=== PATIENT | male | born 1950 | race Caucasian/White ===

== ENCOUNTER → 2022-05-24 13:15 | Outpatient (CLI) | payer MEDICARE, SELFPAY | PROVIDERS: PCP Physician Assistant; Referring Provider Family Medicine; Visit Provider Surgery | DX: I89.0 Lymphedema, not elsewhere classified (principal); L89.313 Pressure ulcer of right buttock, stage 3; L97.522 Non-pressure chronic ulcer of other part of left foot with fat layer exposed; L97.822 Non-pressure chronic ulcer of other part of left lower leg with fat layer exposed; L97.512 Non-pressure chronic ulcer of other part of right foot with fat layer exposed; L97.811 Non-pressure chronic ulcer of other part of right lower leg limited to breakdown of skin; L03.115 Cellulitis of right lower limb; L03.116 Cellulitis of left lower limb; G82.21 Paraplegia, complete | CPT/HCPCS: 11042; 11045; 87070; 87075; 87077; 87147; 87186; 87205; 99204; 99215 ==

== ENCOUNTER → 2022-05-24 13:24 | Outpatient (CLI) | payer MEDICARE, SELFPAY ==
[2022-05-24 15:03] LABS: Add Manual Diff / Slide Review NO; Basophils Absolute Auto 100 /uL (0-100); Basophils Percent Auto 0.8 % (0-2); Eosinophils Absolute Auto 200 /uL (0-450); Eosinophils Percent Auto 2.3 % (2-4); Hematocrit 37.5 % (41-53); Hemoglobin 12.6 g/dL (13.5-17.5); Lymphocytes Absolute Auto 1900 /uL (1100-4500); Lymphocytes Percent Auto 20.7 % (25-40); Mean Corpuscular HGB Conc 33.5 % (30-36); Mean Corpuscular Hemoglobin 29.8 PG (26-34); Mean Corpuscular Volume 88.9 fL (80-100); Monocytes Absolute Auto 700 /uL (0-900); Monocytes Percent Auto 7.5 % (3-14); Neutrophils Absolute Auto 6300 /uL (1500-7000); Neutrophils Percent Auto 68.7 % (50-75); Platelet Count 384 X10^3/uL (150-400); Red Blood Cell Count 4.21 X10^6/uL (4.5-5.9); Red Cell Distribution Width 14.2 % (11.6-14.8); White Blood Cell Count 9.2 X10^3/uL (4.5-11.0)
[2022-05-24 15:18] LABS: Alanine Aminotransferase 47 IU/L (<50); Albumin 4.2 g/dL (3.5-5.0); Albumin Globulin Ratio 1.3 (1.0-2.8); Alkaline Phosphatase 70 U/L (38-126); Aspartate Aminotransferase 33 IU/L (17-59); BUN Creatinine Ratio 24.5 (6-22); Bilirubin Total 0.5 mg/dL (0.2-1.3); Blood Urea Nitrogen 13 mg/dL (9-20); Calcium 9.2 mg/dL (8.4-10.2); Carbon Dioxide 28 mmol/L (22-32); Chloride 100 mmol/L (98-107); Estimated Glomerular Filt Rate > 60 mL/min (>60); Globulin 3.3 g/dL (1.7-4.1); Glucose 100 mg/dL (80-110); HEMOLYSIS < 15 (0-50); Potassium 4.1 mmol/L (3.4-5.1); Sodium 138 mmol/L (137-145); Total Protein 7.5 g/dL (6.3-8.2)
== END ==
PROVIDERS: PCP Family Medicine; Referring Provider Surgery; Visit Provider Surgery
DX: L08.9 Local infection of the skin and subcutaneous tissue, unspecified (principal)
CPT/HCPCS: 36415; 80053; 85025

== ENCOUNTER → 2022-06-01 11:04 | Outpatient (CLI) | payer MEDICARE, SELFPAY | PROVIDERS: PCP Family Medicine; Referring Provider Family Medicine; Visit Provider Surgery | DX: I89.0 Lymphedema, not elsewhere classified (principal); L89.313 Pressure ulcer of right buttock, stage 3; L97.522 Non-pressure chronic ulcer of other part of left foot with fat layer exposed; L97.512 Non-pressure chronic ulcer of other part of right foot with fat layer exposed; L03.115 Cellulitis of right lower limb; L03.116 Cellulitis of left lower limb; G82.21 Paraplegia, complete | CPT/HCPCS: 11042; 11045; 99213 ==

== ENCOUNTER → 2022-06-15 11:00 | Outpatient (CLI) | payer MEDICARE, SELFPAY | PROVIDERS: PCP Physician Assistant; Referring Provider Physician Assistant; Visit Provider Surgery | DX: I89.0 Lymphedema, not elsewhere classified (principal); L03.119 Cellulitis of unspecified part of limb; L97.521 Non-pressure chronic ulcer of other part of left foot limited to breakdown of skin; L89.313 Pressure ulcer of right buttock, stage 3; R60.0 Localized edema; G82.21 Paraplegia, complete; Z99.3 Dependence on wheelchair | CPT/HCPCS: 11042; 11045; 97597; 97598 ==

== ENCOUNTER → 2022-06-22 10:42 | Outpatient (CLI) | payer MEDICARE, SELFPAY ==
--- NOTE | 2022-06-22 10:43 | DI.US.S_ITS ---
PROCEDURE: US ARTERIAL DUPLEX LE BI INDICATIONS: NONHEALING ULCERS BILATERAL TECHNIQUE: Color and pulse Doppler interrogation was performed of both lower extremity arterial systems, with image documentation. COMPARISON: None. FINDINGS: Right lower extremity: Common femoral artery: 117 cm/sec, with triphasic flow. Deep femoral artery: 49 cm/sec, with triphasic flow. Proximal superficial femoral artery: 112 cm/sec, with biphasic flow. Mid superficial femoral artery: 96 cm/sec, with triphasic flow. Distal superficial femoral artery: 124 cm/sec, with triphasic flow. Popliteal artery: 119 cm/sec, with triphasic flow. Posterior tibial artery: 109 cm/sec, with monophasic flow. Anterior tibial artery/dorsalis pedis: 78 cm/sec, with monophasic flow. Serrano-scale imaging description: Severe edema Left lower extremity: Common femoral artery: 116 cm/sec, with triphasic flow. Deep femoral artery: 77 cm/sec, with triphasic flow. Proximal superficial femoral artery: 96 cm/sec, with triphasic flow. Mid superficial femoral artery: 89 cm/sec, with triphasic flow. Distal superficial femoral artery: 131 cm/sec, with triphasic flow. Popliteal artery: 101 cm/sec, with triphasic flow. Posterior tibial artery: 125 cm/sec, with monophasic flow. Anterior tibial artery/dorsalis pedis: 24 cm/sec, with monophasic flow. Serrano-scale imaging description: Severe edema IMPRESSION: 1. No significant outflow stenosis bilaterally. 2. Severe bilateral lower extremity edema associated with monophasic waveforms in the tibial vasculature. Initial further assessment with MR angiography runoff evaluation is recommended. Dictated by: Augustus Anglin M.D. on 06/23/2022 at 16:32 Approved by: Augustus Anglin M.D. on 06/23/2022 at 16:36
== END ==
PROVIDERS: PCP Physician Assistant; Referring Provider Surgery; Visit Provider Surgery
DX: L97.519 Non-pressure chronic ulcer of other part of right foot with unspecified severity (principal); L97.529 Non-pressure chronic ulcer of other part of left foot with unspecified severity; R60.0 Localized edema
CPT/HCPCS: 93925

== ENCOUNTER → 2022-06-22 13:57 | Outpatient (CLI) | payer MEDICARE, SELFPAY | PROVIDERS: PCP Physician Assistant; Referring Provider Physician Assistant; Visit Provider Surgery | DX: L89.313 Pressure ulcer of right buttock, stage 3 (principal); L97.522 Non-pressure chronic ulcer of other part of left foot with fat layer exposed; L97.512 Non-pressure chronic ulcer of other part of right foot with fat layer exposed; I89.0 Lymphedema, not elsewhere classified; G82.21 Paraplegia, complete; R60.0 Localized edema | CPT/HCPCS: 11042; 11045; 93925; 97597; 97598; 99213 ==

== ENCOUNTER → 2022-07-12 10:49 | Outpatient (CLI) | payer MEDICARE, SELFPAY | PROVIDERS: PCP Physician Assistant; Referring Provider Family Medicine; Visit Provider Surgery | DX: I89.0 Lymphedema, not elsewhere classified (principal); L89.313 Pressure ulcer of right buttock, stage 3; L97.522 Non-pressure chronic ulcer of other part of left foot with fat layer exposed; L97.512 Non-pressure chronic ulcer of other part of right foot with fat layer exposed; L03.119 Cellulitis of unspecified part of limb; G82.21 Paraplegia, complete | CPT/HCPCS: 11042; 11045; 99213 ==

== ENCOUNTER → 2022-08-02 10:36 | Outpatient (CLI) | payer MEDICARE, SELFPAY | PROVIDERS: PCP Physician Assistant; Referring Provider Family Medicine; Visit Provider Surgery | DX: I89.0 Lymphedema, not elsewhere classified (principal); L97.522 Non-pressure chronic ulcer of other part of left foot with fat layer exposed; L97.512 Non-pressure chronic ulcer of other part of right foot with fat layer exposed; L89.313 Pressure ulcer of right buttock, stage 3; L03.119 Cellulitis of unspecified part of limb; G82.21 Paraplegia, complete | CPT/HCPCS: 11042; 11045; 87070; 87186; 87205; 99214 ==

== ENCOUNTER 2022-08-02 11:54 | Inpatient (IN) | payer MEDICARE, SELFPAY ==
[2022-08-02] VITALS (14 sets, daily range): BP systolic 136–191; BP diastolic 63–96; PULSE 82–105; RESP 12–21; TEMP 36.9–38.1; O2SAT 96–99; BMI 28.8; BMI 28.5
--- NOTE | 2022-08-02 12:17 | ED.WOUNDLAC ---
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 as follows: Interpretation: Sinus rhythm heart rate 93, occasional unifocal PVCs no other ectopy or ST changes noted. 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 With concern for possible need for admission. Patient is a generally well-appearing nontoxic in no distress he is mildly tachycardic on presentation however his overall presentation is not suggestive of sepsis. He does endorse some chills recently and some fatigue compared to baseline. Some difficulty in obtaining labs as patient is a difficult IV start. Evaluation of the decubitus ulcer does show a stage 3 ulcer with some erythema slight heat and induration without fluctuance open area about 3cm in diameter with associated erythema and 5x3cm area of erythema and induration. Does not appear to involve the rectum however further evaluation is pursued with CT scan to evaluate extent. Social work is consulted for this patient given previous note that patient would never accept being put in a facility and the fact that if the patient is to be sent home today after evaluation he may need additional resources to manage his care. On chart review patient's ulcer is reportedly worsening in part due to delay in getting a special pillow for his wheelchair that will allow variable inflation so that he is not constantly putting pressure on this area. Also per patient and his informal caregiver (present today) wounds on his lower extremities are generally improving and Wound Care is happy with the progress--this is consistent with notes from the patient's PCP which I reviewed. Patient's CT Pelvis scan returns showing evidence of a phlegmon without fluid collection, possible small gas focus and this was reviewed with attending physician, as well as the patient's labs. Patient does have a leukocytosis to 15,000. After consultation with hospitalist, given this patient's situation, paraplegia, limited access to wound care and persistently worsening decubitus ulcer now with leukocytosis hospitalist is agreeable to admitting him for further care and evaluation and anticipate transition to half-way facility for further care. <Claude Willson DO - Last Filed: 08/06/22 19:39> Lab Data Labs: Lab Results 08/02/22 08/02/22 08/02/22 Range/Units 13:21 13:50 13:50 WBC 15.9 H (4.5-11.0) X10^3/uL RBC 4.01 L (4.5-5.9) X10^6/uL Hgb 11.5 L (13.5-17.5) g/dL Hct 35.2 L (41-53) % MCV 87.6 (80-100) fL MCH 28.7 (26-34) PG MCHC 32.8 (30-36) % RDW 13.9 (11.6-14.8) % Plt Count 426 H (150-400) X10^3/uL Neut % (Auto) 78.1 H (50-75) % Lymph % (Auto) 11.6 L (25-40) % [place] % (Auto) 8.0 (3-14) % Eos % (Auto) 1.6 L (2-4) % Baso % (Auto) 0.7 (0-2) % Neut # (Auto) 44578 H (1830-7308) /uL Lymph # (Auto) 1800 (0896-8988) /uL [place] # (Auto) 1300 H (0-900) /uL Eos # (Auto) 300 (0-450) /uL Baso # (Auto) 100 (0-100) /uL Sodium 134 L (137-145) mmol/L Potassium 4.0 (3.4-5.1) mmol/L Chloride 96 L (98-107) mmol/L Carbon Dioxide 32 (22-32) mmol/L BUN 11 (9-20) mg/dL Creatinine 0.55 L (0.66-1.25) mg/dL Estimated GFR > 60 (>60) mL/min BUN/Creatinine Ratio 20.0 (6-22) Glucose 105 (80-110) mg/dL Lactate (0.7-2.1) mmol/L Calcium 8.9 (8.4-10.2) mg/dL Magnesium (1.6-2.3) mg/dL Total Bilirubin 0.7 (0.2-1.3) mg/dL AST 28 (17-59) IU/L ALT 45 (<50) IU/L Alkaline Phosphatase 74 (38-126) U/L Total Protein 7.6 (6.3-8.2) g/dL Albumin 3.7 (3.5-5.0) g/dL Globulin 3.9 (1.7-4.1) g/dL Albumin/Globulin Ratio 0.9 L (1.0-2.8) Procalcitonin 0.11 (<0.5) ng/mL Urine Color Urine Appearance Urine pH (4.5-8.0) Ur Specific [place] (1.000-1.035) Urine Protein (Negative) Urine Glucose (UA) (Negative) g/dL Urine Ketones (NEGATIVE) Urine Occult Blood (Negative) Urine Nitrate (Negative) Urine Bilirubin (NEGATIVE) Urine Urobilinogen (0.2) E.U./dL Ur Leukocyte Esterase (NEGATIVE) Urine RBC (0-5/HPF) Urine WBC (0-5/HPF) Ur Squamous Epith Cells (0-5/HPF) Urine Bacteria (None) Ur Culture Indicated? SARS-CoV-2 (PCR) Negative (Negative) Influenza A (RT-PCR) Flu a negative (NEGATIVE) Influenza B (RT-PCR) Flu b negative (NEGATIVE) RSV (PCR) Negative (Negative) 08/02/22 08/02/22 08/02/22 Range/Units 13:50 13:50 14:02 WBC (4.5-11.0) X10^3/uL RBC (4.5-5.9) X10^6/uL Hgb (13.5-17.5) g/dL Hct (41-53) % MCV (80-100) fL MCH (26-34) PG MCHC (30-36) % RDW (11.6-14.8) % Plt Count (150-400) X10^3/uL Neut % (Auto) (50-75) % Lymph % (Auto) (25-40) % [place] % (Auto) (3-14) % Eos % (Auto) (2-4) % Baso % (Auto) (0-2) % Neut # (Auto) (3157-0373) /uL Lymph # (Auto) (7788-8527) /uL [place] # (Auto) (0-900) /uL Eos # (Auto) (0-450) /uL Baso # (Auto) (0-100) /uL Sodium (137-145) mmol/L Potassium (3.4-5.1) mmol/L Chloride (98-107) mmol/L Carbon Dioxide (22-32) mmol/L BUN (9-20) mg/dL Creatinine (0.66-1.25) mg/dL Estimated GFR (>60) mL/min BUN/Creatinine Ratio (6-22) Glucose (80-110) mg/dL Lactate 1.1 (0.7-2.1) mmol/L Calcium (8.4-10.2) mg/dL Magnesium 2.1 (1.6-2.3) mg/dL Total Bilirubin (0.2-1.3) mg/dL AST (17-59) IU/L ALT (<50) IU/L Alkaline Phosphatase (38-126) U/L Total Protein (6.3-8.2) g/dL Albumin (3.5-5.0) g/dL Globulin (1.7-4.1) g/dL Albumin/Globulin Ratio (1.0-2.8) Procalcitonin (<0.5) ng/mL Urine Color Yellow Urine Appearance Clear Urine pH 6.5 (4.5-8.0) Ur Specific [place] 1.015 (1.000-1.035) Urine Protein Negative (Negative) Urine Glucose (UA) Negative (Negative) g/dL Urine Ketones Trace H (NEGATIVE) Urine Occult Blood Negative (Negative) Urine Nitrate Negative (Negative) Urine Bilirubin Negative (NEGATIVE) Urine Urobilinogen 1.0 (0.2) E.U./dL Ur Leukocyte Esterase Negative (NEGATIVE) Urine RBC 0-1/hpf (0-5/HPF) Urine WBC 0-1/hpf (0-5/HPF) Ur Squamous Epith Cells 1-5 /hpf (0-5/HPF) Urine Bacteria Few (2-10) H (None) Ur Culture Indicated? Cult not indicated SARS-CoV-2 (PCR) (Negative) Influenza A (RT-PCR) (NEGATIVE) Influenza B (RT-PCR) (NEGATIVE) RSV (PCR) (Negative) Discharge Plan Departure Patient Disposition: Admitted As Inpatient Clinical Impression: Decubitus skin ulcer, UTI (urinary tract infection), Chronic paraplegia, Leukocytosis Admit Date/Time: 08/02/22 17:12 Admit Provider: Bulmaro Prince <Claude Willson, DO - Last Filed: 08/06/22 19:39> Cosign ED Attending Cosignature Attestation: Dr Willson Co-Sign Statement: I was available for consultation during this patient's emergency department visit. This chart is signed by myself for administrative purposes only. I did not have direct contact with this patient during this visit. They were seen independently by the APC.
--- NOTE | 2022-08-02 12:31 | DI.CT.S_ITS ---
PROCEDURE: CT PELVIS W CON INDICATIONS: Right buttock abscess/decubitus TECHNIQUE: After the administration of intravenous contrast, 5 mm thick sections acquired from the iliac crests to the symphysis. 5 mm coronal and sagittal reformats were acquired. For radiation dose reduction, the following was used: automated exposure control, adjustment of mA and/or kV according to patient size. COMPARISON: None. FINDINGS: Image quality: Excellent. Peritoneum and bowel: Bowel loops demonstrate normal wall thickness and caliber. No free fluid or air. Diverticulosis of the sigmoid colon. No findings to suggest acute diverticulitis. Genitourinary: Bladder wall thickness is normal. Nodes and vessels: No iliac, pelvic, or inguinal adenopathy by size criteria. Iliac vessels demonstrate normal size and enhancement. Bones: No suspicious bony lesions. There is right hip arthroplasty. Moderate left hip joint degeneration. Miscellaneous: No inguinal hernias. There is a skin defect in the right posterior thigh. A soft tissue density is noted in the posterior thigh surrounding a subcutaneous gas, compatible with phlegmon. No organized, drainable fluid collections. A linear hyperdensity in the vicinity of the skin defect is probably a surgical suture. There is soft tissue stranding in the right pleural thigh consistent with cellulitis. Less severe stranding is noted in the left thigh. IMPRESSION: 1. There is a skin defect and a tiny focus of subcutaneous gas with surrounding soft tissue stranding and edema consistent with cellulitis and phlegmon. No organized, drainable fluid collections to suggest abscess at this time. 2. Diverticulosis without diverticulitis. Dictated by: Rajiv Paul M.D. on 08/02/2022 at 15:19 Approved by: Rajiv Paul M.D. on 08/02/2022 at 15:23
--- NOTE | 2022-08-02 13:15 | PC.NURSE ---
Pt sees wound care physician at [facility] on a semi regular basis per pt. Pt was recently at wound care visit and was referred to ED for infection assessment. Provider at the bedside for wound assessment.
[2022-08-02 14:11] LABS: Influenza A - CEPHEID Flu A NEGATIVE (NEGATIVE); Influenza B - CEPHEID Flu B NEGATIVE (NEGATIVE); Respiratory Syncytial Virus Negative (Negative)
[2022-08-02 14:12] LABS: COVID-19 CEPHEID 4-PLEX PCR Negative (Negative)
[2022-08-02 14:12] LABS: Add Manual Diff / Slide Review NO; Basophils Absolute Auto 100 /uL (0-100); Basophils Percent Auto 0.7 % (0-2); Eosinophils Absolute Auto 300 /uL (0-450); Eosinophils Percent Auto 1.6 % (2-4); Hematocrit 35.2 % (41-53); Hemoglobin 11.5 g/dL (13.5-17.5); Lymphocytes Absolute Auto 1800 /uL (1100-4500); Lymphocytes Percent Auto 11.6 % (25-40); Mean Corpuscular HGB Conc 32.8 % (30-36); Mean Corpuscular Hemoglobin 28.7 PG (26-34); Mean Corpuscular Volume 87.6 fL (80-100); Monocytes Absolute Auto 1300 /uL (0-900); Neutrophils Absolute Auto 12400 /uL (1500-7000); Neutrophils Percent Auto 78.1 % (50-75); Platelet Count 426 X10^3/uL (150-400); Red Blood Cell Count 4.01 X10^6/uL (4.5-5.9); Red Cell Distribution Width 13.9 % (11.6-14.8); White Blood Cell Count 15.9 X10^3/uL (4.5-11.0)
[2022-08-02 14:13] LABS: Appearance Urine UA CLEAR; Bilirubin Urine UA NEGATIVE (NEGATIVE); Color Urine UA YELLOW; Glucose Urine UA NEGATIVE (Negative); Ketones Urine UA TRACE (NEGATIVE); Leukocyte Esterase Urine UA NEGATIVE (NEGATIVE); Nitrite Urine UA NEGATIVE (Negative); Occult Blood Urine UA NEGATIVE (Negative); Protein Urine UA NEGATIVE (Negative); Specific Gravity Urine UA 1.015 (1.000-1.035); pH Urine UA 6.5 (4.5-8.0)
[2022-08-02 14:22] LABS: Alanine Aminotransferase 45 IU/L (<50); Albumin 3.7 g/dL (3.5-5.0); Albumin Globulin Ratio 0.9 (1.0-2.8); Alkaline Phosphatase 74 U/L (38-126); Aspartate Aminotransferase 28 IU/L (17-59); Bilirubin Total 0.7 mg/dL (0.2-1.3); Blood Urea Nitrogen 11 mg/dL (9-20); Calcium 8.9 mg/dL (8.4-10.2); Carbon Dioxide 32 mmol/L (22-32); Chloride 96 mmol/L (98-107); Estimated Glomerular Filt Rate > 60 mL/min (>60); Globulin 3.9 g/dL (1.7-4.1); Glucose 105 mg/dL (80-110); HEMOLYSIS < 15 (0-50); Sodium 134 mmol/L (137-145); Total Protein 7.6 g/dL (6.3-8.2)
[2022-08-02 14:23] LABS: Lactate (Lactic Acid) 1.1 mmol/L (0.7-2.1)
[2022-08-02 14:39] LABS: Procalcitonin 0.11 ng/mL (<0.5)
[2022-08-02 14:47] LABS: RBC Urine 0-1/HPF (0-5/HPF); WBC Urine 0-1/HPF (0-5/HPF)
[2022-08-02 14:48] LABS: Bacteria Urine Few (2-10); Culture Indicated Urine Cult Not Indicated; Squamous Epithelial Cell Urine 1-5 /HPF (0-5/HPF)
--- NOTE | 2022-08-02 17:37 | PC.NURSE ---
Pts friend brought him to the ED today and spent modt . Friend is Mr. Izaguirre, cell # [phone]. P
--- NOTE | 2022-08-02 18:08 | CM.IDA ---
Initial DCP Assessment Patient is 71 y/o male who presents to ED via recommendation from Wound Care clinic due to patient's bed sore on buttocks. Patient's PCP is Marcia Puckett PA-C, patient has Medicaid and Medicare insurance. Patient has been accepted by hospitalist Dr. Prince due to concern for Decubitis skin ulcer and UTI. Patient is patient of Dr. Gordon at wound care clinic. Patient has hx of hearing loss, paraplegia, bilateral foot ulcers, bedsore on right buttocks and hx of self cathing. WORKFORCE DEVELOPMENT ASSISTANT enters room to meet with patient, patient presents as A/Ox4 eating his meal independently. Patient resides alone on [facility] and has a friend named Kalyan who resides on property. It is reported that Kalyan is a Natropath provider/Chiropractor. Patient is parapalegic at baseline and utilizes riser commode and slide board to transfer independently to commode. Patient is waiting donut pillow to accommodate bed sore. It is reported that patient goes to Wound care clinic and patient also has [facility] referral for animal care supervisor twice a week. Patient endorses preference to d/c to SNF rehab with preference of [facility] or [facility]. Plan: patient to admit to acute care for further medical treatment and evaluation. Plan A: SNF rehab if appropriate, plan B: home with HH and wound care. SASKIA Shoemaker Discharge Planning/Care Management CM Discharge Assessment Start: 08/02/22 18:01 Freq: Status: Active Protocol: Document 08/02/22 18:03 LN (Rec: 08/02/22 18:07 LN [id number]) Discharge Planning Assessment Assigned Racing Mechanic SASKIA Pressley Advance Directives? No History Provided By Patient,Medical Record Has Patient been admitted in last 30 No days? Prior Living Arrangements House Household Members other Comment Friend lives on the property Type of transporation used prior to Relies on Others admit Is patient alert and oriented? Yes Needs Assistance With Bathing,Grooming,Home Chores / Shopping Community Services used prior to Wound Care admission: DME Already Rented / Owned Wheelchair Comment commode riser, board slide and automatic wheelchair Patient/Family Preference Snf Facility Comment Patient has preference for SNF rehab: first choice [facility] , second choice [facility] Wound Care Referrals Initiated Snf SNF/HH Preference [facility] and [facility] Has Agency SNF been contacted No Please Provide Date Initial DC 08/02/22 Assessment Was Performed
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
[2022-08-02] MEDS: cefTRIAXone 1,000 MG in SODIUM CHLORIDE 0.9% 100 ML 200 MG IV (18:42)
[2022-08-02 19:15] LABS: Magnesium 2.1 mg/dL (1.6-2.3)
[2022-08-02] MEDS: VANCOMYCIN 1,250 MG/250 ML PIGGYBACK 250 MG IV (20:29)
[2022-08-03] MEDS: VANCOMYCIN 1,250 MG/250 ML PIGGYBACK 250 MG IV ×3 (02:21→19:46)
[2022-08-03 06:06] LABS: BUN Creatinine Ratio 27.5 (6-22); Blood Urea Nitrogen 14 mg/dL (9-20); Calcium 8.3 mg/dL (8.4-10.2); Carbon Dioxide 28 mmol/L (22-32); Chloride 101 mmol/L (98-107); Estimated Glomerular Filt Rate > 60 mL/min (>60); Glucose 95 mg/dL (80-110); HEMOLYSIS < 15 (0-50); Potassium 3.7 mmol/L (3.4-5.1); Sodium 135 mmol/L (137-145)
[2022-08-03 06:09] LABS: Add Manual Diff / Slide Review NO; Basophils Absolute Auto 200 /uL (0-100); Basophils Percent Auto 1.2 % (0-2); Eosinophils Absolute Auto 500 /uL (0-450); Eosinophils Percent Auto 3.8 % (2-4); Hematocrit 32.1 % (41-53); Hemoglobin 10.5 g/dL (13.5-17.5); Lymphocytes Absolute Auto 2100 /uL (1100-4500); Lymphocytes Percent Auto 15.6 % (25-40); Mean Corpuscular HGB Conc 32.7 % (30-36); Mean Corpuscular Hemoglobin 28.5 PG (26-34); Mean Corpuscular Volume 87.2 fL (80-100); Monocytes Absolute Auto 1100 /uL (0-900); Monocytes Percent Auto 8.3 % (3-14); Neutrophils Absolute Auto 9600 /uL (1500-7000); Neutrophils Percent Auto 71.1 % (50-75); Platelet Count 374 X10^3/uL (150-400); Red Blood Cell Count 3.68 X10^6/uL (4.5-5.9); Red Cell Distribution Width 14.3 % (11.6-14.8); White Blood Cell Count 13.4 X10^3/uL (4.5-11.0)
[2022-08-03 07:00] VITALS: BP 135/62; PULSE 75; RESP 17; TEMP 36.6; O2SAT 97
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
--- NOTE | 2022-08-03 08:49 | PC.NURSE ---
Addendum entered by Hermilo Moody R.N. 08/03/22 12:43: notified by lab that Pt is MRSA positive Original Note: Pt is wheelchair bound paraplegic being seen by Wound care for extensive wounds to buttock and toes along with edema. see posted photo's on previous note. Pt was sent here from wound clinic yesterday. Dr. Prince in to see Pt and discuss plan.
--- NOTE | 2022-08-03 11:53 | PT-IP ANOTE ---
Spoke with pt regarding his prior level of function. Spoke to Dr. Prince, hospitalist regarding pt's pressure ulcer and impact of transfers and moving of pt for assessment, as well as pt's reluctance to transfer if not needed due to every time he transfers his bandage comes off; therefore Dr. Prince gave verbal order to discharge PT eval order. Pt notified. No charge.
[2022-08-03] MEDS: ENOXAPARIN 40 MG/0.4 ML SYRINGE SUBCUT (12:11)
--- NOTE | 2022-08-03 12:31 | OT.IPNOTE ---
Able to get prior level function with pt. Pt states already got up with nursing aid earlier with sliding board and able to do most of it on his own and just needing assist for set-up. Pt states not wanting to get up with therapy due to the bandages coming off as he moves and would rather just get up with nursing as needing for toileting needs. Able to talk to hospitalist and agrees best to discharge therapy orders to limit pt't movement to allow his pressure ulcer to heal. Able to set up trapeze bar for the hospital bed. NO charge.
[2022-08-03 12:42] LABS: MRSA (Nasal) PCR DETECTED (Not Detect)
--- NOTE | 2022-08-03 12:58 | DIET.CONS ---
Addendum entered by Lorena Noble 08/03/22 13:17: RD agrees with internist note below Original Note: Dietary Consultation Note Admission Date: 08/02/2022 17:12 Assessment: 71 y/o M who presents from the wound care clinic with stage 3 buttock pressure ulcer and cellulitis. Pt paraplegic since 2012. RD consulted for pressure ulcer. Met with pt at bedside to discuss current diet and ways to support wound healing. Pt reports eating gluten-free and organic foods, no ETOH, and frequently exercising. Pt feels that he eats so much protein and states that he has increased vitamin and mineral intake through supplements. Diet recall: B/L: Boca burger, 6 eggs, brie cheese, rye bread, nuts. D: light dinner. Stops fluids @6 pm due to incontinence. Ht: 180.34 cm Wt: 93 kg BMI: 28.5 Last BM: 08/02/22 (08/02/22 17:34) MNA: 12 Dexter Score: 16 Diet: 08/02/22 Dinner General (Regular) Diet Diet Modifications: Labs: RBC 3.68 X10^6/uL (4.5-5.9) L 08/03/22 05:15 Hgb 10.5 g/dL (13.5-17.5) L 08/03/22 05:15 Hct 32.1 % (41-53) L 08/03/22 05:15 Creatinine 0.51 mg/dL (0.66-1.25) L 08/03/22 05:15 Lactate 1.1 mmol/L (0.7-2.1) 08/02/22 13:50 Nutrition Diagnosis: increased nutrient needs for healing r/t chronic unhealed wound aeb stage III pressure ulcer, reduced ability to offload secondary to paraplegia and pt requiring I&D. Interventions: 1. Discussed the importance of adequate vitamin and mineral intake to support wound healing. 2. Will send Lee nutrition supplement BID on tray mixed in applesauce. Monitoring/Evaluations: ONS tolerance. Electronically Signed by: Isabela Brooks 08/03/22 12:59 Clinical Dietitian [address] [address]
[2022-08-03] MEDS: cefTRIAXone 1,000 MG in SODIUM CHLORIDE 0.9% 100 ML 200 MG IV (17:45)
[2022-08-03] MEDS: VANCOMYCIN TROUGH 1 REQUEST MISC (19:48)
[2022-08-03 20:00] VITALS: BP 146/59; PULSE 101; RESP 20; TEMP 38.2; O2SAT 96
[2022-08-03] MEDS: MELATONIN 3 MG TABLET 6 MG PO (23:33)
--- NOTE | 2022-08-03 23:42 | PC.NURSE ---
Nightshift Pt dressings on both feet changed with non adhesive foam dressing and wrapped with kerlex gauze and then Elliot stocks over both feet/dressings. Buttocks dressing on right cheek inspected and replaced with aquacell dressing. Pt tolerated dressing change well, no complaints of pain, nausea, vomiting or lightheadedness.
[2022-08-04] MEDS: VANCOMYCIN 1,250 MG/250 ML PIGGYBACK 250 MG IV (02:50)
[2022-08-04 06:23] LABS: Add Manual Diff / Slide Review NO; Basophils Absolute Auto 0 /uL (0-100); Basophils Percent Auto 0.1 % (0-2); Eosinophils Absolute Auto 500 /uL (0-450); Eosinophils Percent Auto 3.8 % (2-4); Hematocrit 30.4 % (41-53); Hemoglobin 10.2 g/dL (13.5-17.5); Lymphocytes Absolute Auto 2500 /uL (1100-4500); Lymphocytes Percent Auto 18.7 % (25-40); Mean Corpuscular HGB Conc 33.6 % (30-36); Mean Corpuscular Volume 86.1 fL (80-100); Monocytes Absolute Auto 1100 /uL (0-900); Monocytes Percent Auto 7.8 % (3-14); Neutrophils Absolute Auto 9400 /uL (1500-7000); Neutrophils Percent Auto 69.6 % (50-75); Platelet Count 354 X10^3/uL (150-400); Red Blood Cell Count 3.52 X10^6/uL (4.5-5.9); Red Cell Distribution Width 13.9 % (11.6-14.8); White Blood Cell Count 13.6 X10^3/uL (4.5-11.0)
[2022-08-04 06:27] LABS: BUN Creatinine Ratio 26.8 (6-22); Blood Urea Nitrogen 15 mg/dL (9-20); Calcium 8.2 mg/dL (8.4-10.2); Carbon Dioxide 27 mmol/L (22-32); Chloride 102 mmol/L (98-107); Estimated Glomerular Filt Rate > 60 mL/min (>60); Glucose 108 mg/dL (80-110); HEMOLYSIS < 15 (0-50); Potassium 3.5 mmol/L (3.4-5.1); Sodium 133 mmol/L (137-145)
[2022-08-04 08:23] VITALS: TEMP 36.4
[2022-08-04 08:45] VITALS: BP 140/69; PULSE 74
[2022-08-04] MEDS: ENOXAPARIN 40 MG/0.4 ML SYRINGE SUBCUT (08:49)
--- NOTE | 2022-08-04 11:38 | CM.DPNOTE ---
DCP Note Attempting SNF placement; [facility] and [facility] declined Discussed with patient; he explains he had been managing at home fairly well until sacral ulcer started to worsen. Patient has been physically fit and has been able to self transfer and complete all ADLs indp Patient agreeable to broadening SNF search and states he hopes to get these healed up Savana Biggs does all shopping, chores and helps maintain their land but does not assist w/ADLs, patient says I could not ask that of him, that would be too much Encouraged patient to consider ferry terminal supervisor care plan and patient unsure why Medicaid is currently inactive. Friend Kalyan gets the mail daily for patient and patient has not seen mail from [facility]. Patient agreeable to completing an [employer] application. Patient would meet functional and financial criteria for [facility] according to info shared this visit Patient gets approx. $1,800 in SS mo and states pays approx $800 in bills. Patient denies the ability to pay privately at this time for in home care or for facility respite care Discussed the potential barriers to SNF placement Patient has a very pleasant and amenable attitude and states understanding that he may need to return home w/resumption of [facility] and outpatient wound care if no SNF is secured. Patient remains hopeful he will get help at SNF w/wound care and assist in off loading pressure to help wounds heal Patient says if he does return home, he hopes the equipment he has ordered (to help off load pressure to his buttocks) arrives in time Awaiting determination from [facility] and [facility]...broaden search further (?) vs return home w/savana Biggs and resumption of [facility] RN, outpatient wound care Realie application of ferry terminal supervisor care dropped off for patient to review and complete CM team following closely for coordination of the safest DCP available to patient JW
[2022-08-04] MEDS: POTASSIUM CHLORIDE 20 MEQ TAB 40 MEQ PO (12:00)
[2022-08-04] MEDS: VANCOMYCIN 1,500 MG/300 ML PIGGYBACK 200 MG IV ×2 (12:04→19:49)
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
[2022-08-04] MEDS: cefTRIAXone 1,000 MG in SODIUM CHLORIDE 0.9% 100 ML 200 MG IV (18:44)
[2022-08-04 19:50] VITALS: BP 129/75; PULSE 86; RESP 18; TEMP 37.2; O2SAT 98
[2022-08-05] MEDS: VANCOMYCIN 1,500 MG/300 ML PIGGYBACK 200 MG IV ×2 (02:35→11:37)
[2022-08-05 06:02] LABS: Add Manual Diff / Slide Review NO; Basophils Absolute Auto 100 /uL (0-100); Basophils Percent Auto 0.5 % (0-2); Eosinophils Absolute Auto 700 /uL (0-450); Eosinophils Percent Auto 5.6 % (2-4); Hematocrit 30.7 % (41-53); Hemoglobin 10.1 g/dL (13.5-17.5); Lymphocytes Absolute Auto 2000 /uL (1100-4500); Lymphocytes Percent Auto 16.2 % (25-40); Mean Corpuscular HGB Conc 32.8 % (30-36); Mean Corpuscular Hemoglobin 28.3 PG (26-34); Mean Corpuscular Volume 86.1 fL (80-100); Monocytes Absolute Auto 800 /uL (0-900); Monocytes Percent Auto 6.9 % (3-14); Neutrophils Absolute Auto 8500 /uL (1500-7000); Neutrophils Percent Auto 70.8 % (50-75); Platelet Count 344 X10^3/uL (150-400); Red Blood Cell Count 3.57 X10^6/uL (4.5-5.9); White Blood Cell Count 12.1 X10^3/uL (4.5-11.0)
[2022-08-05 06:10] LABS: BUN Creatinine Ratio 19.2 (6-22); Blood Urea Nitrogen 10 mg/dL (9-20); Calcium 8.1 mg/dL (8.4-10.2); Carbon Dioxide 26 mmol/L (22-32); Chloride 104 mmol/L (98-107); Estimated Glomerular Filt Rate > 60 mL/min (>60); Glucose 99 mg/dL (80-110); HEMOLYSIS < 15 (0-50); Potassium 3.8 mmol/L (3.4-5.1); Sodium 135 mmol/L (137-145)
[2022-08-05] MEDS: ENOXAPARIN 40 MG/0.4 ML SYRINGE SUBCUT (09:55)
[2022-08-05] MEDS: VANCOMYCIN TROUGH 1 REQUEST MISC (11:37)
[2022-08-05 11:48] LABS: Vancomycin Trough 17.9 ug/mL (10-20)
[2022-08-05 11:54] VITALS: BP 116/71; PULSE 77; RESP 16; TEMP 36.8; O2SAT 95
--- NOTE | 2022-08-05 13:25 | CM.DPNOTE ---
Discharge Planning Note: Met with patient. He is A/O, very [place], has hearing aid in right ear, best side to speak to. He states he does not want to fill out [facility] because if he used them for a LTC bed, they could take his property and he owns acreage on [place] where he [place], so likely would not qualify. He hopes to stay at his home there for as long as he can and not lose his home. (Per previous CM notes he had Medicaid but is inactive?). He has chronic wounds to bilateral LE and St 3 PI to right buttock have been managed by wound center and [facility] has been coming out twice a week for wound care. Wound clinic Dr Carrington advised admission for patient due to his wounds. Patient is receiving Ceftriaxone IV daily and Vancomycin q 8 hours IV (admitted 08/02/22). Pt has a specialized w/c cushion coming in the mail (supposed to be better than his Andino). We have been pursuing SNF upon DC. Per previous CM note, [facility] declined. Nguyen at [facility] is reviewing (had been sent yesterday). Talon from [facility] called and they most likely could accept as early as tomorrow (Sunday) pending approval of Director. This DCP let Dr Salvador know, she is looking into. Patient has been on IVAB since 08/02. Plan: Discharge when medically cleared to SNF, most likely [facility], see above. PASSR complete. Marsha Vigil RN/DCP
[2022-08-05] MEDS: TRIMETH/SULFA 160/800 (DS) TABLET 1 TAB PO ×2 (17:10→20:16)
[2022-08-05] MEDS: AMOXICILLIN/CLAV 875/125 MG 1 TAB PO ×2 (17:10→20:16)
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
[2022-08-05 19:50] VITALS: BP 175/78; PULSE 94; RESP 18; TEMP 37.2; O2SAT 97
[2022-08-05 20:23] VITALS: BP 143/45; PULSE 91; RESP 20; TEMP 38.1; O2SAT 97
[2022-08-05] MEDS: ACETAMINOPHEN 325 MG TABLET 650 MG PO (20:23)
[2022-08-05 22:00] VITALS: TEMP 37.1
[2022-08-06 05:47] LABS: Add Manual Diff / Slide Review NO; Basophils Absolute Auto 100 /uL (0-100); Basophils Percent Auto 0.7 % (0-2); Eosinophils Absolute Auto 500 /uL (0-450); Eosinophils Percent Auto 5.3 % (2-4); Hemoglobin 10.3 g/dL (13.5-17.5); Lymphocytes Absolute Auto 1800 /uL (1100-4500); Lymphocytes Percent Auto 17.5 % (25-40); Mean Corpuscular HGB Conc 33.1 % (30-36); Mean Corpuscular Hemoglobin 28.6 PG (26-34); Mean Corpuscular Volume 86.3 fL (80-100); Monocytes Absolute Auto 900 /uL (0-900); Monocytes Percent Auto 8.9 % (3-14); Neutrophils Absolute Auto 7000 /uL (1500-7000); Neutrophils Percent Auto 67.6 % (50-75); Platelet Count 353 X10^3/uL (150-400); Red Blood Cell Count 3.59 X10^6/uL (4.5-5.9); Red Cell Distribution Width 13.8 % (11.6-14.8); White Blood Cell Count 10.4 X10^3/uL (4.5-11.0)
[2022-08-06 06:00] LABS: Alanine Aminotransferase 104 IU/L (<50); Albumin 2.8 g/dL (3.5-5.0); Albumin Globulin Ratio 0.9 (1.0-2.8); Alkaline Phosphatase 70 U/L (38-126); Aspartate Aminotransferase 69 IU/L (17-59); BUN Creatinine Ratio 18.2 (6-22); Bilirubin Total 0.4 mg/dL (0.2-1.3); Blood Urea Nitrogen 10 mg/dL (9-20); Calcium 8.4 mg/dL (8.4-10.2); Carbon Dioxide 28 mmol/L (22-32); Chloride 104 mmol/L (98-107); Estimated Glomerular Filt Rate > 60 mL/min (>60); Globulin 3.2 g/dL (1.7-4.1); Glucose 98 mg/dL (80-110); HEMOLYSIS < 15 (0-50); Potassium 3.7 mmol/L (3.4-5.1); Sodium 137 mmol/L (137-145)
[2022-08-06 06:15] LABS: Procalcitonin 0.14 ng/mL (<0.5)
[2022-08-06 08:00] VITALS: BP 134/78; PULSE 69; RESP 16; TEMP 36.9; O2SAT 97
[2022-08-06] MEDS: AMOXICILLIN/CLAV 875/125 MG 1 TAB PO ×2 (09:54→21:58)
[2022-08-06] MEDS: TRIMETH/SULFA 160/800 (DS) TABLET 1 TAB PO ×2 (09:54→21:58)
[2022-08-06] MEDS: ENOXAPARIN 40 MG/0.4 ML SYRINGE SUBCUT (09:56)
--- NOTE | 2022-08-06 12:15 | CM.DPC ---
DCP/continued: Reviewed chart. Placed call to [facility] to confirm acceptance tomorrow 08-07-22. Spoke with [facility] and they confirm that they will accept. [facility] requested transport time today if possible. Also requested AM pickle pumper. Notified provider in AM rounds of above. Patient will be going out on oral abx and will no longer be on IV. P: [facility] on 08-07-22. HEATHER
--- NOTE | 2022-08-06 13:00 | PC.NURSE ---
Pt ate well at lunch and back to bed. Wound care done on right buttock, ulcer unstageable and malodorous. Cleaned, and large Allevyn replaced.
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
[2022-08-06 20:15] VITALS: BP 159/72; PULSE 93; RESP 18; TEMP 37.9; O2SAT 100
[2022-08-06] MEDS: SODIUM CHLORIDE 0.9% FLUSH 10 ML IV (21:59)
[2022-08-07] VITALS: TEMP 36.9
[2022-08-07 06:00] VITALS: TEMP 36.6
--- NOTE | 2022-08-07 06:30 | PC.NURSE ---
Addendum entered by Antonio Schmidt CNA 08/07/22 07:39: *foul smelling PURULENT drainage Original Note: PIs on R and L buttock cleaned with NS, alevyn dressings applied. Moderate amount of foul smelling serosanguinous drainage present. Ulcers on R and L 2nd toes cleaned with NS, dressed with xeroform and gauze. Granulation tissue noted on R side. Patient tolerated well.
[2022-08-07 07:00] VITALS: RESP 18
[2022-08-07] MEDS: TRIMETH/SULFA 160/800 (DS) TABLET 1 TAB PO (09:32)
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
[2022-08-07] MEDS: AMOXICILLIN/CLAV 875/125 MG 1 TAB PO (09:33)
[2022-08-07] MEDS: SODIUM CHLORIDE 0.9% FLUSH 10 ML IV (09:33)
[2022-08-07] MEDS: ENOXAPARIN 40 MG/0.4 ML SYRINGE SUBCUT (09:33)
--- NOTE | 2022-08-07 10:50 | CM.DPC ---
DCP Discharge SNF Per MD, pt remains medically stable to d/c to SNF today on oral abx and no identified barriers to discharge. SW called [facility] and confirmed they can still accept today and were able to secure cabulance transport through [facility] between [phone] today. SW updated RN and no additional COVID swab needed and provided number to call report and RN updated pt. SW faxed [facility], signed med list, no scripts needed, MD orders, COVID neg swab from admission, and d/c summary to [facility] to review. Plan: Patient to d/c to [facility] for rehab today via [facility] around [phone] before safe return home alone. BARBRA Rodriguez
[2022-08-07 11:10] VITALS: BP 149/76; PULSE 70; RESP 18; TEMP 36.8; O2SAT 99
== END 2022-08-07 14:05 | DRG 871 ==
LOC: ED 15:51 → AC 17:12
PROVIDERS: Neuromusculoskeletal Medicine, Sports Medicine; Admitting Provider Student in an Organized Health Care Education/Training Program; Emergency Provider Student in an Organized Health Care Education/Training Program; PCP Physician Assistant; Referring Provider Student in an Organized Health Care Education/Training Program; Visit Provider Student in an Organized Health Care Education/Training Program
DX: A41.9 Sepsis, unspecified organism (principal); L89.313 Pressure ulcer of right buttock, stage 3; G82.20 Paraplegia, unspecified; L03.317 Cellulitis of buttock; I96 Gangrene, not elsewhere classified; N39.0 Urinary tract infection, site not specified; L03.119 Cellulitis of unspecified part of limb; G82.21 Paraplegia, complete; I10 Essential (primary) hypertension; B96.1 Klebsiella pneumoniae [K. pneumoniae] as the cause of diseases classified elsewhere; Z20.822 Contact with and (suspected) exposure to COVID-19; I89.0 Lymphedema, not elsewhere classified; L97.522 Non-pressure chronic ulcer of other part of left foot with fat layer exposed; L97.512 Non-pressure chronic ulcer of other part of right foot with fat layer exposed
CPT/HCPCS: 0241U; 11042; 11045; 36415; 36592; 72193; 80048; 80053; 80202; 81001; 83605; 83735; 84145; 85025; 87040; 87070; 87077; 87086; 87186; 87205; 87797; 93005; 93010; 99214; 99283; 99284; J0696; J1650; Q9967

== ENCOUNTER → 2022-10-11 12:50 | Outpatient (CLI) | payer MEDICARE, SELFPAY ==
[2022-08-02 17:34] VITALS: BMI 28.5
== END ==
PROVIDERS: PCP Physician Assistant; Referring Provider Physician Assistant; Visit Provider Surgery
DX: L89.313 Pressure ulcer of right buttock, stage 3 (principal); G82.21 Paraplegia, complete; Z99.3 Dependence on wheelchair
CPT/HCPCS: 11042; 99213

== ENCOUNTER → 2022-10-18 10:36 | Outpatient (CLI) | payer MEDICARE, SELFPAY ==
[2022-08-02 17:34] VITALS: BMI 28.5
== END ==
PROVIDERS: PCP Physician Assistant; Referring Provider Family Medicine; Visit Provider Surgery
DX: L89.313 Pressure ulcer of right buttock, stage 3 (principal); G82.21 Paraplegia, complete; L53.9 Erythematous condition, unspecified
CPT/HCPCS: 11042

== ENCOUNTER → 2022-10-25 10:54 | Outpatient (CLI) | payer MEDICARE, SELFPAY ==
[2022-08-02 17:34] VITALS: BMI 28.5
== END ==
PROVIDERS: PCP Physician Assistant; Referring Provider Physician Assistant; Visit Provider Surgery
DX: L89.313 Pressure ulcer of right buttock, stage 3 (principal); G82.21 Paraplegia, complete
CPT/HCPCS: 11042; 11045

== ENCOUNTER → 2023-08-21 14:06 | Outpatient (CLI) | payer MEDICARE, SELFPAY ==
[2023-08-15 11:58] VITALS: BMI 28.5
[2023-08-21 21:19] LABS: Reticulocyte Count, Percent 0.9 % (0.9-2.6)
[2023-08-21 21:23] LABS: Add Manual Diff / Slide Review NO; Basophils Absolute Auto 100 /uL (0-100); Basophils Percent Auto 0.9 % (0-2); Eosinophils Absolute Auto 400 /uL (0-450); Eosinophils Percent Auto 4.3 % (2-4); Hematocrit 41.5 % (41-53); Hemoglobin 14.1 g/dL (13.5-17.5); Lymphocytes Absolute Auto 3000 /uL (1100-4500); Lymphocytes Percent Auto 32.8 % (25-40); Mean Corpuscular HGB Conc 33.9 % (30-36); Mean Corpuscular Hemoglobin 30.6 PG (26-34); Mean Corpuscular Volume 90.2 fL (80-100); Monocytes Absolute Auto 800 /uL (0-900); Monocytes Percent Auto 8.3 % (3-14); Neutrophils Absolute Auto 5000 /uL (1500-7000); Neutrophils Percent Auto 53.7 % (50-75); Platelet Count 271 X10^3/uL (150-400); White Blood Cell Count 9.2 X10^3/uL (4.5-11.0)
[2023-08-21 21:55] LABS: Alanine Aminotransferase 44 IU/L (<50); Albumin 4.4 g/dL (3.5-5.0); Albumin Globulin Ratio 1.4 (1.0-2.8); Alkaline Phosphatase 65 U/L (38-126); Aspartate Aminotransferase 30 IU/L (17-59); BUN Creatinine Ratio 37.3 (6-22); Bilirubin Total 0.5 mg/dL (0.2-1.3); Blood Urea Nitrogen 19 mg/dL (9-20); Calcium 9.8 mg/dL (8.4-10.2); Carbon Dioxide 24 mmol/L (22-32); Chloride 106 mmol/L (98-107); Estimated Glomerular Filt Rate > 60 mL/min (>60); Globulin 3.1 g/dL (1.7-4.1); Glucose 86 mg/dL (80-110); HEMOLYSIS < 15 (0-50); Potassium 4.4 mmol/L (3.4-5.1); Sodium 137 mmol/L (137-145); Total Protein 7.5 g/dL (6.3-8.2)
[2023-08-21 22:18] LABS: Cholesterol 207 mg/dL (140-199); HDL Cholesterol 49 mg/dL (40-60); LDL Cholesterol Calculated 118 mg/dL (<100); Triglycerides 201 mg/dL (35-150)
[2023-08-21 22:51] LABS: HEMOLYSIS < 15 (0-50); Iron 128 ug/dL (49-181)
[2023-08-21 23:03] LABS: Percent Iron Saturation 28 % (20-50); Total Iron Binding Capacity 454 ug/dL (261-462); Transferrin 362 mg/dL (206-381)
[2023-08-21 23:32] LABS: Ferritin 38 ng/mL (18-464)
[2023-08-21 23:51] LABS: TSH w/ Reflex to FT4 3.85 uIU/mL (0.47-4.68)
== END ==
PROVIDERS: PCP Family Medicine; Visit Provider Family Medicine
DX: R60.0 Localized edema (principal); R74.8 Abnormal levels of other serum enzymes; D64.9 Anemia, unspecified; Z86.718 Personal history of other venous thrombosis and embolism; G82.20 Paraplegia, unspecified; D72.828 Other elevated white blood cell count; Z87.19 Personal history of other diseases of the digestive system; K59.2 Neurogenic bowel, not elsewhere classified; N31.9 Neuromuscular dysfunction of bladder, unspecified
CPT/HCPCS: 80053; 80061; 82728; 83540; 83550; 84443; 85025; 85045

== ENCOUNTER → 2024-04-15 11:28 | Outpatient (CLI) | payer MEDICARE, SELFPAY ==
[2023-08-15 11:58] VITALS: BMI 28.5
[2024-04-15 18:51] LABS: Hematocrit 42.5 % (41-53); Hemoglobin 14.3 g/dL (13.5-17.5); Mean Corpuscular HGB Conc 33.7 % (30-36); Mean Corpuscular Hemoglobin 30.5 PG (26-34); Mean Corpuscular Volume 90.4 fL (80-100); Platelet Count 259 X10^3/uL (150-400); Red Cell Distribution Width 13.9 % (11.6-14.8); White Blood Cell Count 7.5 X10^3/uL (4.5-11.0)
[2024-04-15 18:59] LABS: Alanine Aminotransferase 83 IU/L (<50); Albumin 4.4 g/dL (3.5-5.0); Albumin Globulin Ratio 1.5 (1.0-2.8); Alkaline Phosphatase 62 U/L (38-126); Aspartate Aminotransferase 46 IU/L (17-59); BUN Creatinine Ratio 37.3 (6-22); Bilirubin Total 0.5 mg/dL (0.2-1.3); Blood Urea Nitrogen 19 mg/dL (9-20); Calcium 9.8 mg/dL (8.4-10.2); Carbon Dioxide 27 mmol/L (22-32); Chloride 101 mmol/L (98-107); Estimated Glomerular Filt Rate > 60 mL/min (>60); Glucose 93 mg/dL (80-110); HEMOLYSIS < 15 (0-50); Hemoglobin A1C% w Est Avg Glu 5.7 % (4.0-6.0); Potassium 4.6 mmol/L (3.4-5.1); Sodium 135 mmol/L (137-145); Total Protein 7.4 g/dL (6.3-8.2)
[2024-04-15 19:09] LABS: NT-proBNP (BNP-Adult 18+) 47 pg/mL (<450)
[2024-04-15 19:28] LABS: TSH w/ Reflex to FT4 4.62 uIU/mL (0.47-4.68)
[2024-04-15 20:35] LABS: Prostate Specific Antigen Scrn 1.08 ng/mL (0.1-4.0)
== END ==
PROVIDERS: PCP Family Medicine; Visit Provider Physician Assistant Medical
DX: R73.9 Hyperglycemia, unspecified (principal); D64.9 Anemia, unspecified; R60.9 Edema, unspecified; R06.00 Dyspnea, unspecified; R35.1 Nocturia; Z12.5 Encounter for screening for malignant neoplasm of prostate; R74.8 Abnormal levels of other serum enzymes; N31.9 Neuromuscular dysfunction of bladder, unspecified; R06.89 Other abnormalities of breathing; Z86.19 Personal history of other infectious and parasitic diseases
CPT/HCPCS: 80053; 83036; 83880; 84443; 85027; 87077; 87086; 87186; G0103

== ENCOUNTER → 2024-12-08 14:39 | Outpatient (CLI) | payer MEDICARE, SELFPAY ==
[2023-08-15 11:58] VITALS: BMI 28.5
== END ==
PROVIDERS: PCP Family Medicine; Referring Provider Family Medicine; Visit Provider Surgery
DX: R15.9 Full incontinence of feces (principal); G82.20 Paraplegia, unspecified
CPT/HCPCS: 99212; 99213

== ENCOUNTER → 2025-01-08 10:49 | Outpatient (CLI) | payer MEDICARE, SELFPAY ==
[2024-12-09 16:32] VITALS: BMI 30.7
== END ==
PROVIDERS: Family Provider Family Medicine; PCP Family Medicine; Referring Provider Surgery; Visit Provider Surgery
DX: K94.09 Other complications of colostomy (principal); R21 Rash and other nonspecific skin eruption; G82.20 Paraplegia, unspecified
CPT/HCPCS: 99213

== ENCOUNTER → 2025-02-25 16:36 | Outpatient (CLI) | payer MEDICARE, SELFPAY ==
[2024-12-09 16:32] VITALS: BMI 30.7
== END ==
LOC: WC 16:37
PROVIDERS: Family Provider Family Medicine; PCP Family Medicine; Referring Provider Family Medicine; Visit Provider Surgery
DX: K94.00 Colostomy complication, unspecified (principal); R21 Rash and other nonspecific skin eruption; G82.21 Paraplegia, complete
CPT/HCPCS: 99212; 99213

== ENCOUNTER → 2025-05-08 12:11 | Outpatient (CLI) | payer MEDICARE, SELFPAY ==
[2024-12-09 16:32] VITALS: BMI 30.7
[2025-05-08 18:48] LABS: Alanine Aminotransferase 72 IU/L (<50); Albumin 4.6 g/dL (3.5-5.0); Albumin Globulin Ratio 1.3 (1.0-2.8); Alkaline Phosphatase 60 U/L (38-126); Blood Urea Nitrogen 21 mg/dL (9-20); Calcium 9.7 mg/dL (8.4-10.2); Carbon Dioxide 22 mmol/L (22-32); Chloride 103 mmol/L (98-107); Cholesterol 226 mg/dL (140-199); Estimated Glomerular Filt Rate > 60 mL/min (>60); Globulin 3.6 g/dL (1.7-4.1); Glucose 102 mg/dL (70-99); HDL Cholesterol 45 mg/dL (40-60); Sodium 137 mmol/L (137-145); Total Protein 8.2 g/dL (6.3-8.2); Triglycerides 193 mg/dL (35-150)
[2025-05-08 18:50] LABS: HEMOLYSIS 70 (0-50); Potassium 5.1 mmol/L (3.4-5.1)
[2025-05-08 19:00] LABS: Hematocrit 43.9 % (41-53); Hemoglobin 15.0 g/dL (13.5-17.5); Lymphocytes Absolute Auto 1900 /uL (1100-4500); Mean Corpuscular HGB Conc 34.2 % (30-36); Mean Corpuscular Hemoglobin 30.4 PG (26-34); Mean Corpuscular Volume 89.1 fL (80-100)
[2025-05-08 19:03] LABS: Add Manual Diff / Slide Review SLIDE REVIEW
== END ==
PROVIDERS: Family Provider Family Medicine; PCP Family Medicine; Visit Provider Family Medicine
DX: Z12.5 Encounter for screening for malignant neoplasm of prostate (principal); R60.0 Localized edema; R74.8 Abnormal levels of other serum enzymes; I10 Essential (primary) hypertension; Z86.718 Personal history of other venous thrombosis and embolism
CPT/HCPCS: 80053; 80061; 85025; G0103